=== PATIENT | female | born 1990 | race Hispanic/Latino ===

== ENCOUNTER 2022-01-03 11:52 | Outpatient (CLI) | payer OTHER ==
[2022-01-03 13:34] LABS: Hemoglobin 14.5 g/dL (12.0-15.5); Mean Corpuscular HGB CONC 34.1 g/dL (32.0-36.0); Mean Corpuscular Hemoglobin 32.4 pg (27.0-33.0); Mean Corpuscular Volume 94.9 fl (81.6-98.3); Mean Platelet Volume 12.8 fl (7.4-10.4); Platelet Count 185 10x3/uL (150-450); RBC Distribution Width 14.2 % (11.5-14.5); Red Blood Cell (RBC) Count 4.48 10x6/uL (3.90-5.03); White Blood Cell (WBC) Count 7.2 10x3/uL (3.5-10.5)
[2022-01-03 14:09] LABS: Hep B Surf Ag Non-Reactive S/CO (NonReactive); Syphilis Antibody Nonreactive (Nonreactive); Syphilis Antibody Index 0.03 S/CO (<1.00 Non-Reactive)
[2022-01-03 14:12] LABS: HBSAg Index 0.15 S/CO (0-0.99)
[2022-01-03 20:11] LABS: SARS-CoV-2 PCR by NAA Not Detected (NotDetected)
== END 2022-01-03 11:53 | disposition home or self-care (01) ==
LOC: CSHLAB 11:52
PROVIDERS: ATTEND Family Medicine
DX: Z01.812 Encounter for preprocedural laboratory examination (principal); Z20.822 Contact with and (suspected) exposure to COVID-19; O34.219 Maternal care for unspecified type scar from previous cesarean delivery
CPT/HCPCS: 85027; 86780; 86900; 86901; 87340; U0003; U0005

== ENCOUNTER 2022-01-04 16:52 | Inpatient (IN) | payer MEDICAID, OTHER, SELFPAY ==
[2022-01-04 17:29] VITALS: BMI 33.8
[2022-01-04] MEDS ORDERED: Butorphanol Tartrate 1 MG/ML VIAL SLOW IVP PRN (21:55)
[2022-01-04] MEDS ORDERED: hydrALAZINE 20 MG/ML VIAL SLOW IVP PRN ×2 (21:56→22:06)
[2022-01-04] MEDS ORDERED: Butorphanol Tartrate 1 MG/ML VIAL ONE (22:00)
[2022-01-04] MEDS ORDERED: Famotidine/PF 20 mg/2ml Vial SLOW IVP PRN (22:06)
[2022-01-04] MEDS ORDERED: Promethazine HCl 25 MG/ML VIAL IM PRN ×2 (22:06→22:48)
[2022-01-04] MEDS ORDERED: Bicitra 30 ML UDCUP PO PRN (22:06)
[2022-01-04] MEDS ORDERED: Ondansetron PF 4 MG/2 ML Vial IVP PRN ×2 (22:06→22:48)
[2022-01-04] MEDS ORDERED: ceFAZolin 2 GM/Dextrose 50 ML IVPB ONE (22:12)
[2022-01-04] MEDS ORDERED: Azithromycin 500 MG VIAL ONE (22:13)
[2022-01-04] MEDS ORDERED: ceFAZolin 2 GM/Dextrose 50 ML 2 GM in Premix Bag 1 BAG IVPB SCH (22:15)
[2022-01-04] MEDS ORDERED: Lactated Ringer's 1,000 ML IV SCH (22:15)
[2022-01-04] MEDS ORDERED: Oxytocin 10 UNITS/ML VIAL ONE (22:21)
[2022-01-04] MEDS ORDERED: Morphine PF 10 MG/10 ML VIAL ONE (22:21)
[2022-01-04] MEDS ORDERED: PHENYLEPHRINE-NS 100 MCG/ML 10 ML SYRINGE ONE (22:21)
[2022-01-04 22:42] LABS: Hemoglobin 13.8 g/dL (12.0-15.5); Mean Corpuscular HGB CONC 35.5 g/dL (32.0-36.0); Mean Corpuscular Hemoglobin 32.8 pg (27.0-33.0); Mean Corpuscular Volume 92.4 fl (81.6-98.3); Mean Platelet Volume 12.2 fl (7.4-10.4); Platelet Count 151 10x3/uL (150-450); RBC Distribution Width 14.1 % (11.5-14.5); Red Blood Cell (RBC) Count 4.21 10x6/uL (3.90-5.03); White Blood Cell (WBC) Count 7.4 10x3/uL (3.5-10.5)
[2022-01-04] MEDS ORDERED: diphenhydrAMINE 50 MG/ML VIAL IVP PRN (22:48)
[2022-01-04] MEDS ORDERED: Naloxone HCl 0.4 mg/ml Vial IV PRN (22:48)
[2022-01-04] MEDS ORDERED: Fentanyl 100 MCG/2 ML VIAL SLOW IVP PRN (22:48)
[2022-01-04] MEDS ORDERED: Ondansetron HCl/PF 4 MG/2 ML Vial IVP PRN (22:48)
[2022-01-04] MEDS ORDERED: Ketorolac Tromethamine 30 MG/ML VIAL IVP PRN (22:48)
[2022-01-04] MEDS ORDERED: Naloxone HCl 0.4 mg/ml Vial IVP PRN ×2 (22:48)
[2022-01-04] MEDS ORDERED: Promethazine HCl 25 MG SUPP PR PRN (22:48)
[2022-01-04] MEDS ORDERED: Meperidine HCl/PF 25 MG/ML VIAL SLOW IVP PRN (22:48)
[2022-01-04] MEDS ORDERED: Hydrocerin (Eucerin) Cream 120 gm Jar TOP PRN (22:48)
[2022-01-04] MEDS ORDERED: Ketorolac Tromethamine 30 MG/ML VIAL IVP SCH (23:00)
[2022-01-04] MEDS ORDERED: Communication Order-Pharmacy FS SCH (23:00)
[2022-01-04 23:14] LABS: Hep B Surf Ag Non-Reactive S/CO (NonReactive)
[2022-01-04 23:15] LABS: Syphilis Antibody Nonreactive (Nonreactive); Syphilis Antibody Index 0.02 S/CO (<1.00 Non-Reactive)
[2022-01-04 23:18] LABS: HBSAg Index 0.14 S/CO (0-0.99)
[2022-01-04] MEDS ORDERED: Fentanyl 100 MCG/2 ML VIAL ONE ×2 (23:18→23:25)
[2022-01-04] MEDS ORDERED: Midazolam HCl 2 mg/2 ml Vial ONE (23:29)
[2022-01-04 23:35] LABS: RapidComm Collect By CBN; pH (Cord, venous) 7.365 (7.250-7.350)
[2022-01-04 23:38] LABS: RapidComm Collect By CBN
[2022-01-05] MEDS ORDERED: NS w/ Oxytocin 30 units 500 ML ONE (03:25)
[2022-01-05] MEDS ORDERED: Acetaminophen 325 MG TAB PO PRN (03:35)
[2022-01-05] MEDS ORDERED: hydrALAZINE 20 MG/ML VIAL SLOW IVP PRN (03:35)
[2022-01-05] MEDS ORDERED: Bisacodyl 10 MG SUPP PR PRN (03:35)
[2022-01-05] MEDS ORDERED: Boostrix 0.5 ML (Tdap) VIAL IM ONE (03:35)
[2022-01-05] MEDS ORDERED: Simethicone Chewable 80 MG TAB PO PRN (03:35)
[2022-01-05] MEDS ORDERED: diphenhydrAMINE 25 MG CAP PO PRN (03:35)
[2022-01-05] MEDS ORDERED: Lanolin Ointment 7 GM TUBE TOP PRN (03:35)
[2022-01-05] MEDS ORDERED: Ondansetron PF 4 MG/2 ML Vial IVP PRN (03:35)
[2022-01-05] MEDS ORDERED: NS w/ Oxytocin 30 units 500 ML IV SCH (04:00)
[2022-01-05] MEDS: Ketorolac Tromethamine 30 MG/ML VIAL IVP SCH ×3 (04:37→18:54)
[2022-01-05] MEDS: Ferrous Sulfate 325 MG TAB PO SCH (09:21)
[2022-01-05] MEDS: Prenatal Vitamin 1 TAB PO SCH (10:28)
[2022-01-05] MEDS: Docusate 100 MG CAP PO SCH ×2 (10:29→20:45)
[2022-01-05] MEDS ORDERED: Butorphanol Tartrate 1 MG/ML VIAL SLOW IVP PRN (11:00)
[2022-01-05] MEDS: HYDROcodone/Acetaminophen 5/325 mg Tablet PO PRN (16:39)
[2022-01-06] MEDS: HYDROcodone/Acetaminophen 5/325 mg Tablet PO PRN ×5 (00:11→22:32)
[2022-01-06] MEDS: Ketorolac Tromethamine 30 MG/ML VIAL IVP SCH ×2 (00:11→06:12)
[2022-01-06] MEDS: Ferrous Sulfate 325 MG TAB PO SCH ×3 (03:24→22:31)
[2022-01-06 06:18] LABS: Hemoglobin 11.4 g/dL (12.0-15.5); Mean Corpuscular HGB CONC 34.1 g/dL (32.0-36.0); Mean Corpuscular Hemoglobin 32.8 pg (27.0-33.0); Mean Platelet Volume 12.2 fl (7.4-10.4); Platelet Count 138 10x3/uL (150-450); RBC Distribution Width 14.4 % (11.5-14.5); Red Blood Cell (RBC) Count 3.48 10x6/uL (3.90-5.03); White Blood Cell (WBC) Count 7.4 10x3/uL (3.5-10.5)
[2022-01-06] MEDS: Prenatal Vitamin 1 TAB PO SCH (08:48)
[2022-01-06] MEDS: Docusate 100 MG CAP PO SCH ×2 (08:48→22:27)
[2022-01-06] MEDS: Ibuprofen 800 MG TAB PO SCH ×2 (14:54→22:27)
[2022-01-06] MEDS ORDERED: Milk Of Magnesia 30 ML UDCUP PO SCH (15:45)
[2022-01-07] MEDS: Ibuprofen 800 MG TAB PO SCH (05:11)
[2022-01-07 07:37] VITALS: BP 100/56; TEMP 98.4
[2022-01-07] MEDS: Ferrous Sulfate 325 MG TAB PO SCH (08:55)
[2022-01-07] MEDS: Prenatal Vitamin 1 TAB PO SCH (08:56)
[2022-01-07] MEDS: Docusate 100 MG CAP PO SCH (08:56)
== END 2022-01-07 10:40 | disposition home or self-care (01) | DRG 788 ==
LOC: CSHLD/OP 16:52 → CSHLD 22:45 → CSHPP 01-05 03:32
PROVIDERS: ADMIT Family Medicine; ATTEND Family Medicine
PROC: 10D00Z1 Extraction of Products of Conception, Low, Open Approach (ICD-10-PCS; principal; 2022-01-04)
DX: O34.211 Maternal care for low transverse scar from previous cesarean delivery (principal); O24.429 Gestational diabetes mellitus in childbirth, unspecified control; Z3A.38 38 weeks gestation of pregnancy; Z37.0 Single live birth; O76 Abnormality in fetal heart rate and rhythm complicating labor and delivery; O32.1XX0 Maternal care for breech presentation, not applicable or unspecified; E86.0 Dehydration; Z90.49 Acquired absence of other specified parts of digestive tract; Z79.899 Other long term (current) drug therapy; O99.284 Endocrine, nutritional and metabolic diseases complicating childbirth
CPT/HCPCS: 36415; 51702; 82805; 85027; 86780; 86850; 86900; 86901; 87340; 99285; J0456; J0595; J0690; J1885; J2250; J2274; J2590; J3010

== ENCOUNTER 2024-05-14 22:27 | Inpatient (IN) | payer OTHER ==
[2024-05-14 15:05] LABS: Hematocrit 39.2 % (34.9-44.5); Hemoglobin 13.2 g/dL (12.0-15.5); Platelet Count 174 10x3/uL (150-450)
[2024-05-14 15:46] LABS: HBsAg Index 0.24 S/CO (0-0.99); HIV (1/2) Antibody/Antigen Non-Reactive (NonReactive); HIV 1/2 INDEX 0.06 S/CO (<1.00); Hep B Surf Ag Non-Reactive S/CO (NonReactive); Syphilis Antibody Nonreactive (Nonreactive); Syphilis Antibody Index 0.03 S/CO (<1.00 Non-Reactive)
[2024-05-14 22:54] VITALS: BMI 31.6
[2024-05-14] MEDS: Lactated Ringer's 1,000 ML IV SCH (23:31)
[2024-05-14] MEDS ORDERED: hydrALAZINE 20 MG/ML VIAL SLOW IVP PRN (23:43)
[2024-05-15] MEDS: fentaNYL 50 mcg/mL 1 mL Vial ONE ×2 (01:45→19:40)
[2024-05-15 02:51] LABS: Bilirubin Neg (Negative); Blood, Urine 10 (Negative); Clarity Clear (Clear); Glucose, Urine (Dipstick) Normal (Negative); Ketone, Urine Negative (Negative); Leukocyte Negative (Negative); Nitrite Negative (Negative); Protein, Urine (Dipstick) Negative (Neg-Trace); Urobilinogen Normal mg/dL (Less than 2)
[2024-05-15 04:02] LABS: Bacteria/HPF None Seen HPF (None Seen); CAUTI Indications for Culture Pregnancy; RBC/HPF 0-3 HPF (0-3); Squamous Epithelial 0-3 HPF (0-3); Urine Culture Reflex Yes Yes; WBC/HPF 0-3 HPF (0-3)
[2024-05-15] MEDS ORDERED: Carboprost 250 MCG/ML AMP IM PRN (08:54)
[2024-05-15] MEDS ORDERED: hydrALAZINE 20 MG/ML VIAL SLOW IVP PRN ×2 (08:54→15:15)
[2024-05-15] MEDS ORDERED: Promethazine HCl 25 MG/ML VIAL IM PRN ×3 (08:54→15:15)
[2024-05-15] MEDS ORDERED: Misoprostol 200 MCG TAB PR PRN (08:54)
[2024-05-15] MEDS ORDERED: Famotidine/PF 20 mg/2ml Vial SLOW IVP PRN (08:54)
[2024-05-15] MEDS ORDERED: Diphenoxylate HCl/Atropine Tablet PO PRN (08:54)
[2024-05-15] MEDS ORDERED: Bicitra 30 ML UDCUP PO PRN (08:54)
[2024-05-15] MEDS ORDERED: Acetaminophen 500 MG TAB PO PRN (08:54)
[2024-05-15] MEDS ORDERED: Methylergonovine 0.2 MG/ML VIAL IM PRN (08:54)
[2024-05-15] MEDS ORDERED: Ondansetron PF 4 MG/2 ML Vial IVP PRN ×4 (08:54→15:15)
[2024-05-15] MEDS: CEFAZOLIN 2 GM in Sodium Chloride 0.9% 100 ML IVPB SCH (09:13)
[2024-05-15] MEDS: fentaNYL 50 mcg/mL 1 mL Vial SLOW IVP PRN (09:14)
[2024-05-15] MEDS ORDERED: HYDROmorphone 0.5 MG/0.5 ML SYRINGE SLOW IVP PRN (11:16)
[2024-05-15] MEDS ORDERED: Naloxone HCl 0.4 mg/ml Vial IV PRN (11:16)
[2024-05-15] MEDS ORDERED: Meperidine HCl/PF 25 MG (1 mL) VIAL SLOW IVP PRN (11:16)
[2024-05-15] MEDS ORDERED: Ketorolac Tromethamine 30 MG (1 mL) VIAL IVP PRN (11:16)
[2024-05-15] MEDS ORDERED: Moisturizing Cream (Eucerin) 113 GM JAR TOP PRN (11:16)
[2024-05-15] MEDS ORDERED: Naloxone HCl 0.4 mg/ml Vial IVP PRN ×2 (11:16)
[2024-05-15] MEDS ORDERED: diphenhydrAMINE 50 MG/ML VIAL IVP PRN (11:16)
[2024-05-15] MEDS ORDERED: fentaNYL 50 mcg/mL 1 mL Vial SLOW IVP PRN (11:16)
[2024-05-15] MEDS ORDERED: Communication Order-Pharmacy FS SCH (11:30)
[2024-05-15] MEDS: Ketorolac Tromethamine 30 MG (1 mL) VIAL IVP SCH ×2 (12:10→18:40)
[2024-05-15] MEDS: Oxytocin 30 units/NS 500 ML 500 ML IV SCH (12:52)
[2024-05-15] MEDS ORDERED: diphenhydrAMINE 25 MG CAP PO PRN (15:15)
[2024-05-15] MEDS ORDERED: Boostrix 0.5 ML (Tdap) VIAL (>/=7 yrs of age) IM ONE (15:15)
[2024-05-15] MEDS ORDERED: Lanolin Ointment 7 GM TUBE TOP PRN (15:15)
[2024-05-15] MEDS ORDERED: Bisacodyl 10 MG SUPP PR PRN (15:15)
[2024-05-15] MEDS: Erythromycin Base 0.5% Oint 1 GM TUBE ONE (19:39)
[2024-05-15] MEDS: Phytonadione Neonatal 1 MG/0.5 ML AMP ONE (19:39)
[2024-05-15] MEDS: Oxytocin 10 UNITS/ML VIAL ONE (19:40)
[2024-05-15] MEDS: Phenylephrine 40 MG/NS 250 ML 0 ML ONE (19:40)
[2024-05-15] MEDS: Morphine PF 10 MG/10 ML VIAL ONE (19:40)
[2024-05-15] MEDS: Phenylephrine 40 MG/NS 250 ML 250 ML ONE (19:41)
[2024-05-15] MEDS: Ferrous Sulfate 325 MG TAB PO SCH (21:51)
[2024-05-15] MEDS: Docusate 100 MG CAP PO SCH (21:53)
[2024-05-15] MEDS ORDERED: Meperidine HCl/PF 25 MG (1 mL) VIAL IM PRN (23:30)
[2024-05-16] MEDS: HYDROcodone/Acetaminophen 5/325 mg Tablet PO PRN ×2 (00:42→06:26)
[2024-05-16 05:35] LABS: Hematocrit 32.8 % (34.9-44.5); Hemoglobin 11.4 g/dL (12.0-15.5); Mean Corpuscular HGB CONC 34.8 g/dL (32.0-36.0); Mean Corpuscular Hemoglobin 32.7 pg (27.0-33.0); Mean Platelet Volume 11.8 fL (7.4-10.4); Platelet Count 141 10x3/uL (150-450); RBC Distribution Width 13.9 % (11.5-14.5); Red Blood Cell (RBC) Count 3.49 10x6/uL (3.90-5.03)
[2024-05-16] MEDS: Simethicone Chewable 80 MG TAB PO PRN (09:59)
[2024-05-16] MEDS: Prenatal Vitamin 1 TAB PO SCH (09:59)
[2024-05-16] MEDS: Ibuprofen 800 MG TAB PO SCH (13:23)
[2024-05-18 07:21] VITALS: BP 106/67; TEMP 98.4
== END 2024-05-18 16:00 | disposition home or self-care (01) | DRG 788 ==
LOC: CSHLD/OP 22:27 → CSHLD 05-15 08:49 → CSHPED 05-15 13:57
PROVIDERS: ADMIT Family Medicine; ATTEND Family Medicine
PROC: 10D00Z1 Extraction of Products of Conception, Low, Open Approach (ICD-10-PCS; principal; 2024-05-15)
DX: O34.211 Maternal care for low transverse scar from previous cesarean delivery (principal); Z3A.38 38 weeks gestation of pregnancy; O09.523 Supervision of elderly multigravida, third trimester; Z37.0 Single live birth
CPT/HCPCS: 36415; 51702; 76819; 81001; 85014; 85018; 85027; 85049; 86780; 86850; 86900; 86901; 87086; 87340; 87389; 87480; 87510; 87660; 99285; J1885; J2274; J2590; J3010